=== PATIENT | male | born 1945 | race Caucasian/White ===

== ENCOUNTER → 2019-12-09 10:12 | Outpatient (CLI) | payer MEDICARE, OTHER, SELFPAY ==
[2019-12-09 11:07] LABS: Add Manual Diff / Slide Review NO; Basophils Absolute Auto 0 /uL (0-100); Basophils Percent Auto 0.7 % (0-2); Eosinophils Absolute Auto 100 /uL (0-450); Eosinophils Percent Auto 2.7 % (2-4); Hematocrit 38.4 % (41-53); Hemoglobin 13.7 g/dL (13.5-17.5); Lymphocytes Absolute Auto 900 /uL (1100-4500); Lymphocytes Percent Auto 17.9 % (25-40); Mean Corpuscular HGB Conc 35.8 % (30-36); Mean Corpuscular Hemoglobin 32.1 PG (26-34); Mean Corpuscular Volume 89.9 fL (80-100); Monocytes Absolute Auto 400 /uL (0-900); Monocytes Percent Auto 7.2 % (3-14); Neutrophils Absolute Auto 3600 /uL (1500-7000); Neutrophils Percent Auto 71.5 % (50-75); Platelet Count 133 X10^3/uL (150-400); Red Blood Cell Count 4.27 X10^6/uL (4.5-5.9); Red Cell Distribution Width 13.8 % (11.6-14.8); White Blood Cell Count 5.1 X10^3/uL (4.5-11.0)
[2019-12-09 11:16] LABS: BUN Creatinine Ratio 29.4 (6-22); Blood Urea Nitrogen 30 mg/dL (9-20); Calcium 9.9 mg/dL (8.4-10.2); Carbon Dioxide 24 mmol/L (22-32); Chloride 106 mmol/L (98-107); Estimated Glomerular Filt Rate > 60.0 mL/min (>60); Glucose 163 mg/dL (80-110); HEMOLYSIS < 15 (0-50); Potassium 4.6 mmol/L (3.4-5.1); Sodium 137 mmol/L (137-145)
[2019-12-09 11:33] LABS: Hemoglobin A1C% w Est Avg Glu 6.9 % (4.0-6.0)
== END ==
PROVIDERS: PCP Family Medicine; Referring Provider Orthopaedic Surgery; Visit Provider Orthopaedic Surgery
DX: Z01.818 Encounter for other preprocedural examination (principal); Z01.812 Encounter for preprocedural laboratory examination; R73.9 Hyperglycemia, unspecified
CPT/HCPCS: 36415; 80048; 83036; 85025; 93005; 93010

== ENCOUNTER → 2019-12-11 11:31 | Outpatient (CLI) | payer MEDICARE, OTHER, SELFPAY ==
[2019-12-13 02:11] LABS: COVID19 Sendout Not Detected (Not Detect)
== END ==
PROVIDERS: PCP Family Medicine; Visit Provider Student in an Organized Health Care Education/Training Program
DX: Z11.59 Encounter for screening for other viral diseases (principal)
CPT/HCPCS: 87635

== ENCOUNTER 2019-12-14 11:11 | Inpatient (IN) | payer MEDICARE, OTHER, SELFPAY ==
[2019-12-10 09:43] VITALS: BMI 29.2
[2019-12-14] VITALS (17 sets, daily range): BP systolic 110–158; BP diastolic 22–83; PULSE 57–76; RESP 12–21; TEMP 36.1–37; O2SAT 94–100; BMI 29.2
--- NOTE | 2019-12-14 | DI.RAD.S_ITS ---
PROCEDURE: XR CERVICAL SPINE 2V OR 3V INDICATIONS: C3-7 ACDF TECHNIQUE: 2 intraoperative view(s) of the cervical spine were acquired. COMPARISON: [facility] KIERSTEN Reyez, XR CERVICAL SPINE 2 OR 3 VIEWS, 12/02/2019, 10:03. FINDINGS: Intraoperative guidance for C3-C7 ACDF. ndotracheal tube in the midtrachea. IMPRESSION: Intraoperative guidance for ACDF with C3-C7 hardware. Dictated by: Eddie Bob M.D. on 12/14/2019 at 16:21 Approved by: Eddie Bob M.D. on 12/14/2019 at 16:24
[2019-12-14] MEDS: LACTATED RINGERS 1,000 ML 42 ML IV ×4 (11:33→17:17)
--- NOTE | 2019-12-14 11:46 | PM.PREOP ---
Pre-operative Note COVID-19 COVID-19 status: Negative Result date/Date tested (Pos, Neg/Pending): 12/11/19 Interval Note History & Physical reviewed/Exam performed by Physician: Yes Changes to H&P: No
--- NOTE | 2019-12-14 12:13 | P.OP_ITS ---
Operative Date/Time/Diagnoses Date of procedure: 12/14/19 Time of procedure: 16:04 Pre-op diagnosis: Cervical stenosis with myelopathy Post-op diagnosis: same Procedure & Clinicians Procedure: C3-4, C4-5, C5-6, C6-7 ACDF with cages C3-4, C4-5, C5-6, C6-7 posterior fusion C3 through 7 posterior instrumentation Iliac crest bone graft aspirate Use of microscope Same procedure as scheduled: Yes Indications: [age] year old male with rapidly progressive myelopathy. He had failed conservative management and requested operative intervention. Risks and benefits of surgery were discussed and appropriate consents were obtained. Surgeon: Douglas Nicolas Research Program Coordinator: Zuly Christianson Anesthesia Type: General Operative Notes Findings: None Closure Type: primary Specimen(s): none sent Prosthetic devices, grafts, tissues, transplants, or devices: [place] Cavus posterior fixation Alexandrea JUSTIN-C anterior cages/plates Applied: catheter Estimated Blood Loss (mL): 10 Procedure in detail: The patient was brought to the operating room and intubated on the stretcher. Time-out was performed. There were then rolled over to the well-padded prone position on chest rolls. Two views of fluoroscopy were taken to confirm our positioning. The neck was then prepped and draped in the standard sterile fashion. Preoperative antibiotics were given. Using fluoroscopy, we localized for planned incisions. Two small 8 mm horizontal incisions were made over the lateral masses approximately 2 fingers below our planned surgical site. We then spread down and opened up the fascia. Then percutaneously placed our Steinmann pin through the soft tissue into the facet joint at C3-4 under fluoroscopic visualization. We used the reamer to decorticate the lateral masses compromising the facet. A trocar was placed over the Steinmann pin into the facet and then the pin was removed. We used a rasp to decorticate the facet joint itself. We then filled the DTrax cage with Primagen bone graft and impacted it into the facet joint at C3-4 under fluoroscopic guidance. We then took the lateral mass screw and placed it through the cage and then into the lateral mass for the posterior screw fixation. The directory carrier was removed and we packed more bone graft down the trocar covering the lateral mass. This was done bilaterally. This completed the instrumented posterior fusion at C3-4. We then went to the next levels at C4-5, C5-6, and C6-7. The same procedure was performed with preparation, placement of the cage with bone graft, and placement of the screw for bilateral instrumented posterior fusion at C4-5, C5-6, and C6- 7. The wounds were irrigated. The skin was closed and a sterile dressing placed. The patient was then rolled over to the table in the supine position and positioned for the anterior surgery. The arms were tucked and a shoulder roll was placed. The neck and left iliac crest were prepped and draped in the standard sterile fashion. A 3 cm oblique incision was made on the left side of the neck along the skin fold. Bovie was used to split the platysma. We then bluntly dissected a standard anterolateral approach to the precervical fascia. A marker was placed and x-ray taken to confirm our positioning. We then used the Bovie to the subperiosteally lift up the longus colli muscles. Self-retaining retractors were placed. We then placed [place] pins and distracted across the C3-4 disc spa ce. We brought in the microscope. A complete anterior discectomy was performed at C3-4 using a combination of scalpel, curettes, pituitaries, and Kerrison rongeurs. The bur was used to take down the posterior osteophytes as well as decorticate the disc space. We then released the PLL and used the Kerrison to remove any further posterior osteophytes and disc material. At the end a nerve hook could be swept cephalad caudally and out the neural foramen and everything was open. We trialed for our cages. A small stab incision was made over the left iliac crest. We placed a Jamshidi aspiration needle into the iliac crest and aspirated several mL of bone marrow graft. We then took our Alexandrea LDR JUSTIN-C cage and packed it with Primagen, and mixed in the bone marrow aspirate. The cage was then placed into the disc space under fluoroscopic guidance. The 2 locking plates were placed through the cage for fixation. This completed the ACDF at C3-4. We then went to the next levels at C4-5, C5-6, and C6-7. Again a complete diskectomy was performed including taking down the PLL and posterior osteophytes and disc material. The endplates were prepped with a bur. We trialed and then packed our JUSTIN-C cage with the bone graft and then placed into the disc space. The locking plates were placed as well. This completed the ACDFs at C4-5, C5-6 and C6-7. Final x-rays were taken. The wound was copiously irrigated. There was no bleeding. The carotid was bleeding nicely. The platysma was closed. The superficial skin were closed. A Steri-Strip was placed over the iliac crest incision. Sterile dressings were placed. The patient was then extubated and brought to the recovery room without complication. Complications: none Post-operative Condition: stable Disposition: PACU Plan for aftercare: Inpatient. Up with PT.
[2019-12-14] MEDS: CEFAZOLIN 2 GM/100 ML FROZ.PIGGY IV ×2 (12:24→20:03)
[2019-12-14] MEDS: INSULIN REGULAR 100 UNIT/ML 3 ML VIAL SUBCUT ×2 (12:45→14:33)
--- NOTE | 2019-12-14 13:06 | SUR.OPER ---
Supine, head on gel donut. Arms padded with gel pads, tucked at sides, towel roll under shoulders. Safety belt at thigh. Legs uncrossed.
--- NOTE | 2019-12-14 13:07 | SUR.OPER ---
Prone on padded OR bed, head in foam head support, gel chest rolls, gel pad under knees, pillow under lower legs, toes free of pressure, arms padded and tucked at side . Safety belt at thigh.shoulders in traction with tape from shoulder to foot of bed
[2019-12-14] MEDS: BUPIVACAINE 0.5% W/ EPI (PF) 30 ML VIAL INJ (13:18)
[2019-12-14] MEDS: THROMBIN (RECOMBINANT) 5,000 UNIT VIAL 5000 UNIT TOP (13:21)
[2019-12-14] MEDS: SODIUM CHLORIDE 0.9% 1,000 ML, GENTAMICIN 80 MG IRR (13:21)
--- NOTE | 2019-12-14 14:36 | SUR.OPER ---
blood glucose checked at 1420 reading 173
[2019-12-14] MEDS: fentaNYL 100 MCG/2 ML INJ IV ×2 (16:30→16:36)
[2019-12-14] MEDS: HYDROMORPHONE 2 MG INJ IV ×8 (16:31→17:14)
[2019-12-14] MEDS: ONDANSETRON 4 MG/2 ML INJ IV (16:33)
[2019-12-14] MEDS: ACETAMINOPHEN 325 MG TABLET 650 MG PO (16:34)
[2019-12-14] MEDS: OXYCODONE IR 5 MG TABLET PO ×2 (16:34→17:11)
[2019-12-14] MEDS: hydrOXYzine pamoate 25 MG CAPSULE PO (19:30)
[2019-12-14] MEDS: HYDROMORPHONE 0.5 MG INJ IV (19:31)
[2019-12-14] MEDS: LACTATED RINGERS 1,000 ML 125 ML IV (19:31)
[2019-12-14] MEDS: CELECOXIB 200 MG CAPSULE 400 MG PO (19:42)
[2019-12-14] MEDS: GABAPENTIN 300 MG CAPSULE PO (21:39)
[2019-12-14] MEDS: DOCUSATE 100 MG CAPSULE PO (21:40)
[2019-12-14] MEDS: SENNOSIDES 8.6 MG TABLET 17.2 MG PO (21:40)
[2019-12-14] MEDS: METFORMIN HCL 500 MG TABLET 1000 MG PO (21:40)
[2019-12-14] MEDS: ATORVASTATIN 20 MG TABLET 10 MG PO (21:41)
[2019-12-14] MEDS: HYDROCODONE/ACET 5/325 TABLET 2 TAB PO (21:42)
[2019-12-14] MEDS: lisinopriL 10 MG TABLET PO (21:42)
[2019-12-14] MEDS: INSULIN NPH 100 UNIT/ML VIAL 17 UNIT SUBCUT (21:47)
--- NOTE | 2019-12-14 21:56 | PC.NURSE ---
2144 - Pt originally reported pain as a 4. Pt requesting rx for pain. previously documented pain goal is 4. Discussed pain scale, pt states I have a hard time with that. Pt continues to report the need for pain Rx. Showed the [place] Soto face scaled, reviewed descriptions and pt then reported pain a 7. I guess it's more like that one. Rx given as ordered. Able to take medication without difficulty. Denies further need. Call light in reach.
--- NOTE | 2019-12-15 00:12 | PC.NURSE ---
Addendum entered by Carol Cordoba R.N. 12/15/19 00:19: Later tonight I observed anterior neck drsg mostly saturated with thin sero-sang drainage, outer tegaderm remains CDI with no leaking apparent. Posterior neck drsg same as previous with scant shadow drainage, tegaderm dry/intact. [place] drain still appears active, bulb compressed. VS stable, using IS to 3000. RT in room to set up CPAP and do IS teaching. Original Note: Post-op note: Patient brought from PACU to rm 224 around 1725, VS stable. RA oxygen 98% He is awake, drowsy, oriented x 3 & to situation. Neck drsg with small amt of sero-sang drainage to bottom lateral edge, otherwise CDI. Back of neck with drsg that has small dime sized spot of shadow drainage, otherwise CDI. Wearing soft collar for support. [place] drain with sero-sang in tubing/bulb, HATCHERY HELPER reported difficulty getting bulb to stay compressed. I was able to get bulb to compress by screwing the cap on, small amt of sero-sang observed moving in tubing & bulb. Pt reporting tingling to arms which he said was there before surgery. Reported pain to neck, medicated with IV Dilaudid as was too early to give PO's. He reported good pain relief from Dilaudid. No swallowing problems observed, tolerated ice chips, water, and then ate mashed potatoes, meatloaf & broccoli. Wearing bilateral foot SCD's which he came up from surgery wearing. Tele placed per continue order, rhythm normal sinus. Fall precautions in place, alarm active for safety.
[2019-12-15] MEDS: HYDROCODONE/ACET 5/325 TABLET 2 TAB PO (03:00)
[2019-12-15] MEDS: CEFAZOLIN 2 GM/100 ML FROZ.PIGGY IV (03:50)
[2019-12-15] MEDS: LACTATED RINGERS 1,000 ML 125 ML IV (03:50)
[2019-12-15 04:13] VITALS: BP 100/51; PULSE 66; RESP 18; TEMP 35.9
--- NOTE | 2019-12-15 07:50 | PM.PNPO.1 ---
Subjective Subjective Date Patient Seen: 12/15/19 Time Patient Seen: 07:50 Interval history: He is doing very well. Pain is about 3/10. The hand still feel rough but not like they were prior to surgery. He is swallowing okay. His drain stopped holding suction overnight. Exam Vital Signs (past 8 hours): - 12/14/19 23:56 12/15/19 04:13 Temperature 98.6 F 96.6 F L Pulse Rate 71 66 Respiratory Rate 16 18 Blood Pressure 138/63 100/51 L Pulse Oximetry 98 Oxygen Delivery Method Room Air,CPAP Const Orientation: alert and oriented x3 Back/Spine/Pelvis Other: Drain output 5/25. Moderate drainage on both anterior posterior dressings. 5/5 motor both upper extremities. Assessment & Plan Post-op Postoperative Procedures: Procedures Operation Date: 12/14/19 12:45 Actual Procedures Side Surgeon p C3-7 anterior discectomy & anterior/posterior fusion w. bone graft and instrumentation Douglas Nicolas MD he is doing well. Removed drain and change dressings. Remove Phelps. Mobilize with PT. If he is doing well, he can discharge home later this morning.
[2019-12-15 08:00] VITALS: BP 102/51; PULSE 66; RESP 15; TEMP 36.6; O2SAT 98
[2019-12-15] MEDS: DOCUSATE 100 MG CAPSULE PO (09:08)
[2019-12-15] MEDS: TAMSULOSIN 0.4 MG CAPSULE PO (09:08)
[2019-12-15] MEDS: ASPIRIN EC 81 MG TABLET PO (09:08)
[2019-12-15] MEDS: HYDROCODONE/ACET 5/325 TABLET 1 TAB PO (09:08)
[2019-12-15] MEDS: METFORMIN HCL 500 MG TABLET 1000 MG PO (09:08)
[2019-12-15] MEDS: CELECOXIB 200 MG CAPSULE PO (09:08)
[2019-12-15] MEDS: INSULIN NPH 100 UNIT/ML VIAL 17 UNIT SUBCUT (09:09)
--- NOTE | 2019-12-15 09:43 | PC.NURSE ---
Pt resting in bed. IV hl, Tele removed, drain removed-no drainage. Sutures to incision sites (ant/post) intact and covered with s/s and Coversite dsg.
--- NOTE | 2019-12-15 10:56 | CM.DANOTE ---
DCP: Case received, EMR reviewed and met with patient. Introduced self and role. Was able to obtain information from patient regarding his baseline activity level prior to having surgery. DCP assessment completed with information currently available. Patient is a 74 year old male who admitted yesterday morning to the care of the orthopedic team. PCP: Dr. Degroot. Payer: confirmed: Medicare/Personally. Patient came to the hospital via private vehicle for a surgical procedure. He had cervical posterior fusion. Patient has history of cervical stenosis of the spine. Met with patient in his room. He is alert and oriented, wearing a neck collar. He is independent at baseline. He resides in [place] with his spouse, Anabel. He confirmed that she will assist him for any needs when he goes home. P: Patient is to be discharged home today when cleared by Mars Melendez RN/Ground Layer
--- NOTE | 2019-12-15 11:08 | OT.IP.EVAL ---
Current Diagnoses Other spondylosis with myelopathy, cervical region (12/14/19) Spinal stenosis, cervical region (12/14/19) Surgery Performed Operation Date: 12/14/19 12:45 Actual Procedures p C3-7 anterior discectomy & anterior/posterior fusion w. bone graft and instrumentation - Douglas Nicolas MD Past Medical History (Last Updated 12/10/19 @ 10:33 by Shira Raza RN) Arthritis (Acute) Chronic neck pain (Acute) Degenerative cervical spinal stenosis (Acute) Diabetes (Acute) Diverticulosis (Acute) Easy bruisability (Acute) HLD (hyperlipidemia) (Acute) HTN (hypertension) (Acute) Infectious hepatitis (Acute ~12/1964) Internal hemorrhoids (Acute) Lumbago with sciatica (Acute) MIGUEL ÁNGEL on CPAP (Acute) RLS (restless legs syndrome) (Acute) Sciatica (Acute) Seasonal allergies (Acute) Traumatic injury (Acute) Surgical History (Last Updated 12/10/19 @ 10:18 by Shira Raza RN) History of colonoscopy (Acute) History of hip surgery (Acute) Occupational Therapy Inpatient Evaluation/Re-Eval M1 PT/OT-IP Prior Functional Status Start: 12/15/19 12:32 Freq: NEEDED Status: Active Protocol: Document 12/15/19 12:32 [facility] (Rec: 12/15/19 12:50 [facility] [id number]) Medical Review Prior Functional Status Medical History Reviewed Yes Communication Independent. Activities of Daily Living and IADL's Pt states was competely independent for all ADl and IADL needs. Social History Household Members spouse Living Arrangements House Number of Stairs To Enter/Railing? Pt has 1 step from the front door and 3 from the back. Home Environment Standard Height Toilet,High Toilet,Tub/Shower Doors Home Equipment Front Wheel Walker,Four Wheel Walker,Manual Wheelchair,Hand Held Shower,Car And Yard Supervisor M2 OT-IP Current Condition Start: 12/15/19 12:32 Freq: Status: Active Protocol: Document 12/15/19 12:32 [facility] (Rec: 12/15/19 12:50 [facility] [id number]) Occupational Therapy Current Condition Current Condition Evaluation Date 12/15/19 Treatment Diagnosis s/p C3-C7 ACDF Diagnosis Onset Date 12/14/19 Post Operative Precautions Cervical Spine Precautions Soft Collar for Comfort,No Heavy Lifting,Log Roll M3 OT- IP Subjective and Pain Start: 12/15/19 12:32 Freq: Status: Active Protocol: Document 12/15/19 12:32 [facility] (Rec: 12/15/19 12:50 [facility] [id number]) OT- Subjective Occupational Therapy Visit Type Type Initial Evaluation Visit Start Time 10:48 Visit Stop Time 11:08 Total Visit Minutes 20 Occupational Therapy Visit Comments Patient Comments Pt agreed to get up , get dressed and waiting for his to come pick him up. Patient/Caregiver Goals To go home. OT Pain Assessment Pain When Pain Assessed At Rest Pain Present Pain Present Denied Pain M4 OT- IP ADL's Start: 12/15/19 12:32 Freq: Status: Active Protocol: Document 12/15/19 12:32 [facility] (Rec: 12/15/19 12:50 [facility] [id number]) OT [id number] Comments OT Self-Feeding Comments Not at meal time. Educated pt to chew food thoroughly, sit upright, eat softer food and cold food can be helpful. Pt already had ACDF info in the room for Pt earlier. OT ADL-Grooming General Evaluation Grooming Ability Standby Assistance Comments OT Grooming Comments Set-up , cues to lean to spit into the sink or just spit into a cup. OT ADL-Dressing General Eval Upper Body Dressing Ability Minimal Assistance Lower Body Dressing Ability Standby Assistance Areas Needing Assistance Managing Buttons Comments OT Dressing Comments SBA to sit to oksana his clothing. OT ADL-Toileting Comments OT Toileting Comments Pt not having to go. OT ADL-Bathing Comments OT Bathing Comments Pt not wanting to shower. M6 OT- IP Functional Cognition Start: 12/15/19 12:32 Freq: Status: Active Protocol: Document 12/15/19 12:32 [facility] (Rec: 12/15/19 12:50 [facility] [id number]) Cognitive Factors Limiting Selfcare Function Cognitive Ability Level of Alertness Alert Patient Orientation Name,Place,Situation Attention Span Ability Capable of Focused Attention, Capable of Sustained Attention Ability to Follow Commands Able to Follow One Step Commands Memory Description No Deficits Noted Safety Awareness Underestimates Need for Assistance Cognitive Comments Cognitive Assessment Comments Pt mainly just needing safety reminders to sit for LB dressing needs. To have present or obtain a shower chair for showering . M7 OT- IP Mobility and Balance Start: 12/15/19 12:32 Freq: Status: Active Protocol: Document 12/15/19 12:32 [facility] (Rec: 12/15/19 12:50 [facility] [id number]) OT-Transfer Assessment Sit to and From Stand Sit to and from Stand Standby Assistance,Contact Guard Assistance Transfers Transfer Ability Standby Assistance Devices Transfer Assistive Devices Gait Belt Comments Mobility Comments Pt had initial loss of balance while standing up and needing CGA and then after that episode was SBA . Educated pt' s to be there to assist if needed especially for uneven terrain. OT- Balance Assessment Sitting Balance and Reactions Static Sitting Balance Ability Normal Dynamic Sitting Balance Ability Normal Standing Balance and Reactions Static Standing Balance Ability Fair Dynamic Standing Balance Ability Fair M8 OT- IP Objective Assessments Start: 12/15/19 12:32 Freq: Status: Active Protocol: Document 12/15/19 12:32 [facility] (Rec: 12/15/19 12:50 [facility] [id number]) OT Gross Range of Motion Upper Extremity Range of Motion Assessment Bilaterally Impaired OT- Coordination Assessment Comments Coordination Comments Pt needing assist for buttons. M9 OT- IP Assessment and Plan Start: 12/15/19 12:32 Freq: Status: Active Protocol: Document 12/15/19 12:32 [facility] (Rec: 12/15/19 12:50 [facility] [id number]) OT Summary Assessment and Plan Potential Rehabilitation Potential Good Analytic Complexity at Evaluation Low Summary OT Impairments Functional Cognition, Functional Mobility,Dressing, Toileting,Bathing,Shower Transfers Progress Towards Goals Progressing Toward Goals Goals Grooming Goal Independent Dressing Goal Independent Toileting Goal Independent Bathing Goal Independent Toilet Transfer Goal Independent Shower Transfer Goal Independent Patient/Caregiver Education Goal Demonstrate Post-Op Precautions,Caregiver Independent Assisting Patient Days to Meet Goals 1 Frequency of Treatment Frequency Of Treatment Once a Day Treatment Plan OT Treatment Plan ADL Training,Functional Cognition Training,Functional Mobility,Patient/Family Education,Discharge Planning Other Treatment Recommendations and Next Shower if still here. Treatment Focus Discharge Recommendations OT Discharge Recommendations Home with Assistance Home Equipment Needs shower chair Transportation Needs at Discharge Private Vehicle
--- NOTE | 2019-12-15 11:37 | PC.NURSE ---
Pt is dressed and ready for discharge home with Spouse. Went over d/c instructions with Pt and Spouse-discussed d/c meds, time of last dose, reviewed stroke education, lifting limits, showering, dsg changes, s/s of infection and when to call MD, No driving while on narcotics, drink plenty of fluids to prevent constipation or dehydration, and follow up. Pt denies further questions and was taken out via w/c by WASHING MACHINE REPAIRER to POV with Spouse and all belongings.
--- NOTE | 2019-12-15 14:53 | PT.IIE ---
Current Diagnoses Other spondylosis with myelopathy, cervical region (12/14/19) Spinal stenosis, cervical region (12/14/19) Surgery Performed Operation Date: 12/14/19 12:45 Actual Procedures p C3-7 anterior discectomy & anterior/posterior fusion w. bone graft and instrumentation - Douglas Nicolas MD Surgical History (Last Updated 12/10/19 @ 10:18 by Shira Raza RN) History of colonoscopy (Acute) History of hip surgery (Acute) Medical History (Last Updated 12/10/19 @ 10:33 by Shira Raza RN) Arthritis (Acute) Chronic neck pain (Acute) Degenerative cervical spinal stenosis (Acute) Diabetes (Acute) Diverticulosis (Acute) Easy bruisability (Acute) HLD (hyperlipidemia) (Acute) HTN (hypertension) (Acute) Infectious hepatitis (Acute ~12/1964) Internal hemorrhoids (Acute) Lumbago with sciatica (Acute) MIGUEL ÁNGEL on CPAP (Acute) RLS (restless legs syndrome) (Acute) Sciatica (Acute) Seasonal allergies (Acute) Traumatic injury (Acute) Physical Therapy Inpatient Evaluation/Re-Eval M1 PT/OT-IP Prior Functional Status Start: 12/15/19 08:21 Freq: NEEDED Status: Discharge Protocol: Document 12/15/19 12:24 DE (Rec: 12/15/19 13:10 DE [id number]) Medical Review Prior Functional Status Medical History Reviewed Yes Diet/Fluid Consistency Regular Communication WNL. No deficits noted. Able to make needs known. Mobility and Gait IND with all mobility and amb without AD at baseline. Pt has difficulty with balance especially at steps. Activities of Daily Living and IADL's IND with all ADLs and IADLs at baseline. Able to drive. Prior Functional Level (Other details) Difficulty with fine motor control such as typing, writing, and picking up an object. Social History Household Members spouse Living Arrangements House Number of Floors (Floors) One Floor Number of Stairs To Enter/Railing? 4 entrances: 1 small CIARRA through front. 1 CIARRA through garage. 3 CIARRA through back. 3 CIARRA another entrance. No railing in any of the entrances. Home Environment Standard Height Toilet,High Toilet,Tub/Shower Home Equipment Front Wheel Walker,Four Wheel Walker,Quad Cane,Straight Cane ,Physical Education Department Chair Employment Status Retired Additional Social History Comment Pt lives with spouse, who will be available for help at home if needed. Pt's spouse amb with quad cane. M1 PT/OT-IP Prior Functional Status Start: 12/15/19 12:32 Freq: NEEDED Status: Active Protocol: Document 12/15/19 12:32 [facility] (Rec: 12/15/19 12:50 [facility] [id number]) Medical Review Prior Functional Status Medical History Reviewed Yes Communication Independent. Activities of Daily Living and IADL's Pt states was competely independent for all ADl and IADL needs. Social History Household Members spouse Living Arrangements House Number of Stairs To Enter/Railing? Pt has 1 step from the front door and 3 from the back. Home Environment Standard Height Toilet,High Toilet,Tub/Shower Doors Home Equipment Front Wheel Walker,Four Wheel Walker,Manual Wheelchair,Hand Held Shower,Physical Education Department Chair M2 PT-IP Current Condition Start: 12/15/19 08:21 Freq: NEEDED Status: Discharge Protocol: Document 12/15/19 12:24 [place] (Rec: 12/15/19 13:10 DE [id number]) Physical Therapy Current Condition Current Condition Evaluation Date 12/15/19 Treatment Diagnosis C3-7 ACDF; Decreased balance Onset Date 12/14/2019 Precautions Cervical Spine Precautions Soft Collar for Comfort,No Heavy Lifting,Log Roll M3 PT-IP Subjective Start: 12/15/19 08:21 Freq: NEEDED Status: Discharge Protocol: Document 12/15/19 12:24 [place] (Rec: 12/15/19 13:10 DE [id number]) Subjective Physical Therapy Visit Type Type Initial Evaluation Visit Start Time 09:45 Visit Stop Time 10:30 Total Visit Minutes 45 Notes DERIK Patel treat pt under direct supervision of PT Lui. Number of BRASS CUTTER Visits 0 Physical Therapy Visit Comments Patient Comments Pt agreed to mobilize with PT. Patient Goals To return home. M4 PT-IP Mobility and Gait Start: 12/15/19 08:21 Freq: NEEDED Status: Discharge Protocol: Document 12/15/19 12:24 [place] (Rec: 12/15/19 13:10 DE [id number]) PT-Bed Mobility Assessment Rolling Type of Rolling Roll to Left Level of Assist Contact Guard Assistance Supine to Sit Supine to Sit Contact Guard Assistance Scooting Scooting to Edge of Bed Contact Guard Assistance PT-Transfer Assessment Sit to and From Stand Sit to and from Stand Contact Guard Assistance,Use of Upper Extremities Equipment Transfer Assistive Device Gait Belt,Front Wheeled Walker Orthotic/Prosthetic Devices or Brace: No Transfers Transfer Destination Chair Transfer Technique Stand Step Pivot Transfer Ability Level of Assist Contact Guard Assistance Comments Mobility Comments Pt was lying in bed as PT and SPT arrived. Pt performed logroll to the L and sat at EOB x2 with CGA, once with use of L handrail, once without using handrail. At EOB, pt c/o mild dizziness and BP was 118 /59. Pt completed sit to stand with CGA and FWW. Pt requested to use the bathroom. Pt amb to the bathroom and he was able to urinate in the toilet in standing with CGA and FWW. Pt then amb out to the stairs and back to the room for ~600 total with CGA. Pt amb ~200 ft with FWW and ~ 400 ft without any AD. No LOB was noted. Pt performed stair climbing up and down 3 steps x2 with min 1PA and no handrail. The first time, pt used step-over strategy and demonstrated some LOB. Pt was instructed to use step-to strategy and no LOB was noted for the second time. Pt was also instructed to look down at the steps by bending at the hips. Pt then performed 1 PF step x2 with CGA and demonstrated no LOB. Pt amb back to the room and sat down in the chair wihtout any LOB. BP in sitting was 134/62. Call light placed within reach. Gait Assessment Gait Gait Assistance Required: Contact Guard Assist Distance (Feet) 600 Able to Maintain Weight Bearing Status Yes During Gait Assistive Devices Assistive Device Gait Belt,Front Wheeled Walker Orthotic/Prosthetic Devices or Brace: No Gait Deviations General Gait Pattern Within Normal Limits Factors Limiting Gait Function Factors Limiting Gait Function Poor Balance Comments Gait Comments See mobility comments. Stair Climbing Assessment Evaluation Level of Assist On Stairs Contact Guard Assistance,1 Person Assistance Devices Stair Climbing Assistive Devices None Technique/Endurance Stair Climbing Direction Ascend and Descend Stair Climbing Technique Step to Step Number of Steps Climbed 3 Query Text: Stair Climbing Set # Repetitions (reps) 2 Comments Stair Climbing Comments See mobility comments. PT-Balance Assessment Sitting Balance and Reactions Static Sitting Balance Ability Normal Dynamic Sitting Balance Ability Normal Standing Balance and Reactions Static Standing Balance Ability Normal Dynamic Standing Balance Ability Good M5 PT-IP Objective Assessments Start: 12/15/19 08:21 Freq: NEEDED Status: Discharge Protocol: Document 12/15/19 12:24 [place] (Rec: 12/15/19 13:10 DE [id number]) Orientation Orientation/Cognition Level of Alertness Alert Orientation Name,Age,Birthday,Month,Date, Year,Day of Week,Place, Situation Language Function Ability No Deficits Noted Safety Awareness Decreased Safety Awareness Memory Description No Deficits Noted Gross Range of Motion Upper Extremity ROM Assessment Within Functional Limits Lower Extremity ROM Assessment Within Functional Limits Strength Upper Extremity Strength Assessment Within Functional Limits Lower Extremity Strength Assessment Within Functional Limits Coordination Assessment Gross Coordination Gross Coordination WNL Assessment Foot Tapping Test Normal Performance Heel on Bejarano Test Limited d/t hip tightness from hip surgery Coordination Comments Pt demonstrated some difficulty performing finger tap bilaterally. Sensation Assessment Sensation Gross Sensation Right UE Impaired,Left UE Impaired Light Touch Impaired Sensation Description Numbness Comments Sensation Comments Pt has some numbness in BUE but was able to feel light touch. Pt denies numbness in BLE. Muscle Tone Muscle Tone WNL Yes M6 PT-IP Treatment Start: 12/15/19 08:21 Freq: NEEDED Status: Discharge Protocol: Document 12/15/19 13:37 [place] (Rec: 12/15/19 13:51 DE [id number]) Physical Therapy Treatment Education Education Provided Precautions,Post-Op Packet, Safety M7 PT-IP Assessment and Plan Start: 12/15/19 08:21 Freq: NEEDED Status: Discharge Protocol: Document 12/15/19 13:37 DE (Rec: 12/15/19 13:51 DE [id number]) PT Summary Assessment and Plan Potential Rehabilitation Potential Excellent Status of Condition at Evaluation Stable Summary Impairments ROM,Strength,Balance,Sensation ,Bed Mobility,Transfers,Gait Progress Towards Goals Safe For Discharge Assessment Summary This is a low complexity evaluation for 74 yo male, David, s/p C3-7 ACDF POD1. PLOF= IND with all mobility and amb without AD at baseline . Pt has difficulty with balance sometimes especially at steps but denies any hx of falls. CLOF= CGA for all transfers and amb including 1 PF step without AD. Able to amb >~400 ft without AD. Pt is safe to d/c home with assistance from spouse. Frequency of Treatment Frequency Of Treatment Discharge Discharge Recommendations PT Discharge Recommendations Home with Assistance Transportation Needs at Discharge Private Vehicle
--- NOTE | 2019-12-15 15:01 | PT.IIE ---
Current Diagnoses Other spondylosis with myelopathy, cervical region (12/14/19) Spinal stenosis, cervical region (12/14/19) Surgery Performed Operation Date: 12/14/19 12:45 Actual Procedures p C3-7 anterior discectomy & anterior/posterior fusion w. bone graft and instrumentation - Douglas Nicolas MD Surgical History (Last Updated 12/10/19 @ 10:18 by Shira Raza RN) History of colonoscopy (Acute) History of hip surgery (Acute) Medical History (Last Updated 12/10/19 @ 10:33 by Shira Raza RN) Arthritis (Acute) Chronic neck pain (Acute) Degenerative cervical spinal stenosis (Acute) Diabetes (Acute) Diverticulosis (Acute) Easy bruisability (Acute) HLD (hyperlipidemia) (Acute) HTN (hypertension) (Acute) Infectious hepatitis (Acute ~12/1964) Internal hemorrhoids (Acute) Lumbago with sciatica (Acute) MIGUEL ÁNGEL on CPAP (Acute) RLS (restless legs syndrome) (Acute) Sciatica (Acute) Seasonal allergies (Acute) Traumatic injury (Acute) Physical Therapy Inpatient Evaluation/Re-Eval M1 PT/OT-IP Prior Functional Status Start: 12/15/19 08:21 Freq: NEEDED Status: Discharge Protocol: Document 12/15/19 12:24 [place] (Rec: 12/15/19 13:10 DE [id number]) Medical Review Prior Functional Status Medical History Reviewed Yes Diet/Fluid Consistency Regular Communication WNL. No deficits noted. Able to make needs known. Mobility and Gait IND with all mobility and amb without AD at baseline. Pt has difficulty with balance especially at steps. Activities of Daily Living and IADL's IND with all ADLs and IADLs at baseline. Able to drive. Prior Functional Level (Other details) Difficulty with fine motor control such as typing, writing, and picking up an object. Social History Household Members spouse Living Arrangements House Number of Floors (Floors) One Floor Number of Stairs To Enter/Railing? 4 entrances: 1 small CIARRA through front. 1 CIARRA through garage. 3 CIARRA through back. 3 CIARRA another entrance. No railing in any of the entrances. Home Environment Standard Height Toilet,High Toilet,Tub/Shower Home Equipment Front Wheel Walker,Four Wheel Walker,Quad Cane,Straight Cane ,Hospice Nurse Employment Status Retired Additional Social History Comment Pt lives with spouse, who will be available for help at home if needed. Pt's spouse amb with quad cane. M1 PT/OT-IP Prior Functional Status Start: 12/15/19 12:32 Freq: NEEDED Status: Active Protocol: Document 12/15/19 12:32 [facility] (Rec: 12/15/19 12:50 [facility] [id number]) Medical Review Prior Functional Status Medical History Reviewed Yes Communication Independent. Activities of Daily Living and IADL's Pt states was competely independent for all ADl and IADL needs. Social History Household Members spouse Living Arrangements House Number of Stairs To Enter/Railing? Pt has 1 step from the front door and 3 from the back. Home Environment Standard Height Toilet,High Toilet,Tub/Shower Doors Home Equipment Front Wheel Walker,Four Wheel Walker,Manual Wheelchair,Hand Held Shower,Hospice Nurse M2 PT-IP Current Condition Start: 12/15/19 08:21 Freq: NEEDED Status: Discharge Protocol: Document 12/15/19 12:24 [place] (Rec: 12/15/19 13:10 DE [id number]) Physical Therapy Current Condition Current Condition Evaluation Date 12/15/19 Treatment Diagnosis C3-7 ACDF; Decreased balance Onset Date 12/14/2019 Precautions Cervical Spine Precautions Soft Collar for Comfort,No Heavy Lifting,Log Roll M3 PT-IP Subjective Start: 12/15/19 08:21 Freq: NEEDED Status: Discharge Protocol: Document 12/15/19 12:24 [place] (Rec: 12/15/19 13:10 DE [id number]) Subjective Physical Therapy Visit Type Type Initial Evaluation Visit Start Time 09:45 Visit Stop Time 10:30 Total Visit Minutes 45 Notes DERIK Patel treat pt under direct supervision of PT Lui. Number of BOX TOE STITCHER Visits 0 Physical Therapy Visit Comments Patient Comments Pt agreed to mobilize with PT. Patient Goals To return home. M4 PT-IP Mobility and Gait Start: 12/15/19 08:21 Freq: NEEDED Status: Discharge Protocol: Document 12/15/19 12:24 [place] (Rec: 12/15/19 13:10 DE [id number]) PT-Bed Mobility Assessment Rolling Type of Rolling Roll to Left Level of Assist Contact Guard Assistance Supine to Sit Supine to Sit Contact Guard Assistance Scooting Scooting to Edge of Bed Contact Guard Assistance PT-Transfer Assessment Sit to and From Stand Sit to and from Stand Contact Guard Assistance,Use of Upper Extremities Equipment Transfer Assistive Device Gait Belt,Front Wheeled Walker Orthotic/Prosthetic Devices or Brace: No Transfers Transfer Destination Chair Transfer Technique Stand Step Pivot Transfer Ability Level of Assist Contact Guard Assistance Comments Mobility Comments Pt was lying in bed as PT and SPT arrived. Pt performed logroll to the L and sat at EOB x2 with CGA, once with use of L handrail, once without using handrail. At EOB, pt c/o mild dizziness and BP was 118 /59. Pt completed sit to stand with CGA and FWW. Pt requested to use the bathroom. Pt amb to the bathroom and he was able to urinate in the toilet in standing with CGA and FWW. Pt then amb out to the stairs and back to the room for ~600 total with CGA. Pt amb ~200 ft with FWW and ~ 400 ft without any AD. No LOB was noted. Pt performed stair climbing up and down 3 steps x2 with min 1PA and no handrail. The first time, pt used step-over strategy and demonstrated some LOB. Pt was instructed to use step-to strategy and no LOB was noted for the second time. Pt was also instructed to look down at the steps by bending at the hips. Pt then performed 1 PF step x2 with CGA and demonstrated no LOB. Pt amb back to the room and sat down in the chair wihtout any LOB. BP in sitting was 134/62. Call light placed within reach. Gait Assessment Gait Gait Assistance Required: Contact Guard Assist Distance (Feet) 600 Able to Maintain Weight Bearing Status Yes During Gait Assistive Devices Assistive Device Gait Belt,Front Wheeled Walker Orthotic/Prosthetic Devices or Brace: No Gait Deviations General Gait Pattern Within Normal Limits Factors Limiting Gait Function Factors Limiting Gait Function Poor Balance Comments Gait Comments See mobility comments. Stair Climbing Assessment Evaluation Level of Assist On Stairs Contact Guard Assistance,1 Person Assistance Devices Stair Climbing Assistive Devices None Technique/Endurance Stair Climbing Direction Ascend and Descend Stair Climbing Technique Step to Step Number of Steps Climbed 3 Query Text: Stair Climbing Set # Repetitions (reps) 2 Comments Stair Climbing Comments See mobility comments. PT-Balance Assessment Sitting Balance and Reactions Static Sitting Balance Ability Normal Dynamic Sitting Balance Ability Normal Standing Balance and Reactions Static Standing Balance Ability Normal Dynamic Standing Balance Ability Good M5 PT-IP Objective Assessments Start: 12/15/19 08:21 Freq: NEEDED Status: Discharge Protocol: Document 12/15/19 12:24 [place] (Rec: 12/15/19 13:10 DE [id number]) Orientation Orientation/Cognition Level of Alertness Alert Orientation Name,Age,Birthday,Month,Date, Year,Day of Week,Place, Situation Language Function Ability No Deficits Noted Safety Awareness Decreased Safety Awareness Memory Description No Deficits Noted Gross Range of Motion Upper Extremity ROM Assessment Within Functional Limits Lower Extremity ROM Assessment Within Functional Limits Strength Upper Extremity Strength Assessment Within Functional Limits Lower Extremity Strength Assessment Within Functional Limits Coordination Assessment Gross Coordination Gross Coordination WNL Assessment Foot Tapping Test Normal Performance Heel on Bejarano Test Limited d/t hip tightness from hip surgery Coordination Comments Pt demonstrated some difficulty performing finger tap bilaterally. Sensation Assessment Sensation Gross Sensation Right UE Impaired,Left UE Impaired Light Touch Impaired Sensation Description Numbness Comments Sensation Comments Pt has some numbness in BUE but was able to feel light tough. Pt denies numbness in BLE. Muscle Tone Muscle Tone WNL Yes M6 PT-IP Treatment Start: 12/15/19 08:21 Freq: NEEDED Status: Discharge Protocol: Document 12/15/19 13:37 [place] (Rec: 12/15/19 13:51 DE [id number]) Physical Therapy Treatment Education Education Provided Precautions,Post-Op Packet, Safety M7 PT-IP Assessment and Plan Start: 12/15/19 08:21 Freq: NEEDED Status: Discharge Protocol: Document 12/15/19 13:37 DE (Rec: 12/15/19 13:51 DE [id number]) PT Summary Assessment and Plan Potential Rehabilitation Potential Excellent Status of Condition at Evaluation Stable Summary Impairments ROM,Strength,Balance,Sensation ,Bed Mobility,Transfers,Gait Progress Towards Goals Safe For Discharge Assessment Summary This is a low complexity evaluation for 74 yo male, David, s/p C3-7 ACDF POD1. PLOF= IND with all mobility and amb without AD at baseline . Pt has difficulty with balance sometimes expecially at steps but denies any hx of falls. CLOF= CGA for all transfers and amb including 1 PF step without AD. Able to amb >~400 ft without AD. Pt is safe to d/c home with assistance from spouse. Frequency of Treatment Frequency Of Treatment Discharge Discharge Recommendations PT Discharge Recommendations Home with Assistance Transportation Needs at Discharge Private Vehicle This note is written by DERIK Adames. It has reviewed and approved by Nicole Ham PT.
== END 2019-12-15 11:40 | disposition home or self-care (01) | DRG 454 ==
PROVIDERS: Admitting Provider Orthopaedic Surgery; PCP Family Medicine; Referring Provider Orthopaedic Surgery; Visit Provider Orthopaedic Surgery
PROC: 0RG20A0 Fusion of 2 or more Cervical Vertebral Joints with Interbody Fusion Device, Anterior Approach, Anterior Column, Open Approach (ICD-10-PCS; principal; 2019-12-14 12:45)
DX: M48.02 Spinal stenosis, cervical region (principal); M47.12 Other spondylosis with myelopathy, cervical region; E11.9 Type 2 diabetes mellitus without complications; Z79.4 Long term (current) use of insulin; I10 Essential (primary) hypertension; E78.5 Hyperlipidemia, unspecified; G47.33 Obstructive sleep apnea (adult) (pediatric); Z11.59 Encounter for screening for other viral diseases
CPT/HCPCS: 72040; 76000; 82962; 87635; 94762; 97116; 97161; 97165; 97530; C1776; J0690; J1170; J2405; J2704; J3010